=== PATIENT | female | born 1985 | race Caucasian/White ===

== ENCOUNTER 2017-08-18 08:04 | Observation (INO) | payer OTHER ==
--- NOTE | 2017-08-14 18:15 | PDGENHP ---
History and Physical - Chief Complaint Here for External cephalic version attempt - History of Present Illness 32 yo at 37w3d on 08/18/17, with breech presentation - desires external cephalic version attempt. First - 10#3oz baby delivered vaginally, coccyx fracture, episiotomy, pp hemorrhage with D&C. care with [facility], [place]. Has seen MFM - at 24 wk, had EFW = 69% ile, symmetric, prior ventriculomegaly had resolved. MFM US done at 35w2d = EFW 24%ile, with HC at 98%, BPD at 92%, AC <2%, FL 40%, normal dopplers, MVP 5, Ant Gr 2 placenta. Recommendation was recheck growth at 38 wk and induce at 39wk. Toxo neg, CMV immune. Last had water at 0730, last ate at 1900 last evening. CV labs: GBS Positive 12.9/37 plt 274 A pos Ab scre neg RPR - NR Rub Imm HepBsAg neg HIV neg Declined standard panel UA Ucx - neg neg GC neg Chl neg AFP neg NIPT neg 28 wk: 12.6/37.6 plt 80 PMH: depression/ anxiety - Zoloft and Wellbutrin in High school. PSH: removal of nevi, D&C, wisdom teeth Famhx: MGM - melanoma, MGF - colon ca, MAunt - ovarian cancer, MGF - TIAs, PGF - dementia Soc: , currently no tob/etoh/other drugs, SAHM 37.1 14 68 123/71 gen - pleasant, NAD CV - RRR chest - CTAB abd - gravid, soft, NT ext - 1+ edema US - breech, subjectively normal fluid IMP: breech presentation in a multiparous patient. Plan: written informed consent was obtained - including section, and will proceed with attempt at External Cephalic version once labs have returned. Samantha Ward MD, FACOG [facility] History Information - Allergies/Home Medication List Allergies/Adverse Reactions: ciprofloxacin Allergy (Verified 08/18/17 08:55) I have personally reviewed and updated: family history, medical history, social history, surgical history Review of Systems Review of Systems: ROS: 10pt was reviewed & negative except for what was stated in HPI & below Physical Exam Physical Exam: Lab Data & Imaging Review 08/18/17 09:00
[2017-08-18] MEDS ORDERED: TERBUTALINE SULFATE 1 MG/ML VIAL IV ONE (08:56)
[2017-08-18] MEDS ORDERED: OLIVE OIL 118 ML BTL MISC ONE (08:56)
[2017-08-18 09:10] LABS: PLATELET COUNT 258 10^3/uL (150-400)
[2017-08-18 09:39] VITALS: BP 121/66
--- NOTE | 2017-08-18 10:21 | SOAPPROG ---
SOAP Progress Note Assessment/Plan: Assessment: 32 at 37w3d with persistent breech presentation, s/p failed ECV attempt. Plan: Will schedule elective primary C/S at 39w2d on 08/31/17. Will monitor in L&D for 2 hours, may eat after 30 min reassuring tracing. Samantha Ward MD, [facility] 08/18/17 10:17 Subjective: Procedure attempted: Under frequent US guidance, Fatmata Trujillo CNM, and Willi attempted an ECV - with 2 forward roll attempts and 2 backward roll attempts. Difficulty was had disengaging the pelvis from the maternal pelvis. Every 2 min the heart rate was checked and it was always >120. Pt tolerated the procedure well. Objective: Vital Signs Temp Pulse Resp BP Pulse Ox 81 121/66 H 08/18/17 09:38 08/18/17 09:38 Laboratory Results 08/18/17 09:00 - Pending Discharge Pending Discharge Within 24 Hours: Yes Pending Discharge Within 48 Hours: Yes Pending Discharge Date: 08/19/17 Pending Discharge Time: 11:00 ICD10 Worksheet Patient Problems: Problems Problem Status Onset Breech presentation Acute - ICD10 Problem Qualifiers (1) Breech presentation Qualifiers: Fetus number: single or unspecified fetus Qualified Code(s): O32.1XX0 - Maternal care for breech presentation, not applicable or unspecified
== END 2017-08-18 12:14 | disposition home or self-care (01) ==
LOC: FOBOP 08:04 → FLD 09:00
PROVIDERS: ADMIT Obstetrics & Gynecology; ATTEND Obstetrics & Gynecology
DX: O32.1XX0 Maternal care for breech presentation, not applicable or unspecified (principal); Z3A.37 37 weeks gestation of pregnancy
CPT/HCPCS: 59025; G0378; J3105

== ENCOUNTER 2017-08-29 09:41 | Inpatient (IN) | payer OTHER ==
[2017-08-29] MEDS ORDERED: LR 500 ML IV ONE (13:57)
[2017-08-29] MEDS ORDERED: CITRIC ACID/SODIUM CITRATE 30 ML UDCUP PO ONE (13:57)
[2017-08-29] MEDS ORDERED: ceFAZolin 2 GM/DEXTROSE 100 ML IV ONE (13:57)
[2017-08-29] MEDS ORDERED: LR 1,000 ML IV SCH (14:00)
--- NOTE | 2017-08-29 14:13 | PREANESOB ---
Obstetric Pre-Anesthesia Info - General Info Proposed Procedure: : 2 Para: 1 RITA: 09/05/17 Gestational Age: 39 week(s) and 0 day(s) - Info Status: Full Term, Fuller, Malpresentation Monitors: External - Labor Status Section History: Primary Indications for Current Section: Breech Labor Epidural: No (Patient with previously attempted ECV. Baby in breech position. Patient arrived for NST this morning. Plan for primary . Patient's previous delivery was vaginal .) Anesthesia Allergies/Adverse Reactions: Allergy/AdvReac Type Severity Reaction Status Date / Time ciprofloxacin Allergy Verified 08/18/17 08:55 Visit Medications: Generic Name Dose Route Start Last Admin Trade Name Freq PRN Reason Stop Dose Admin Cefazolin Sodium/Dextrose 100 mls @ 200 mls/hr 08/29/17 13:57 Ancef 2 Gm IV 08/29/17 14:26 ONCALL ONE Protocol Lactated Ringer's 1,000 mls @ 125 mls/hr 08/29/17 14:00 Lr IV 08/30/17 13:59 CONT MALA Discontinued Medications Generic Name Dose Route Start Last Admin Trade Name Freq PRN Reason Stop Dose Admin Citric Acid/Sodium Citrate 30 ml 08/29/17 13:57 Bicitra PO 08/29/17 13:58 ONCALL ONE Lactated Ringer's 500 mls @ 0 mls/hr 08/29/17 13:57 Lr IV 08/29/17 13:58 ONCE ONE As Directed - Anesthesia History Response to Local Anesthetics: Normal Anesthesia & Operative History: No Prior Problems Family Anesthesia History: Negative - Social History Substance Use/Abuse: Denies - Vital Signs Latest Vital Signs (Nursing): Temp Pulse Resp BP Pulse Ox 36.5 C 61 20 96 08/29/17 13:22 08/29/17 13:22 08/29/17 13:22 08/29/17 13:22 Height/Weight (Nursing): Height 175.26 cm Weight 87.543 kg - Focused Exam Neck exam: FROM Mallampati Score: Class 2 Mouth exam: normal dental/mouth exam Pulmonary: no respiratory distress Cardiovascular: regular rate and rhythym (ASA 2 - ) - Plan Consent Signed and on Chart: Yes Patient/Guardian Understands and Agrees to Plan: Yes Urgent/Emergent Case: Lenore stark completed preop but documented later for safe timely pt care
[2017-08-29] MEDS ORDERED: fentaNYL 100 MCG/2 ML INJ ONE (14:17)
[2017-08-29] MEDS ORDERED: DEXAMETHASONE 4 MG/ML VIAL ONE (14:18)
[2017-08-29] MEDS ORDERED: PHENYLEPHRINE HCL 100 MCG/ML SYR ONE (14:18)
[2017-08-29] MEDS ORDERED: ONDANSETRON 4 MG/2 ML VIAL ONE (14:18)
[2017-08-29 14:28] LABS: PLATELET COUNT 253 10^3/uL (150-400)
[2017-08-29] MEDS ORDERED: MISOPROSTOL 200 MCG TAB ONE (14:59)
--- NOTE | 2017-08-29 15:07 | GHP ---
[f rep st] HISTORY AND PHYSICAL DATE OF ADMISSION: 08/29/2017 ADMITTING DIAGNOSES: 1. Intrauterine at 39 weeks. 2. Malpresentation, breech. 3. Oligohydramnios. HISTORY OF PRESENT ILLNESS: Patient is a 32-year-old, 2, para 1-0-0-1, at 39 weeks with an estimated due date of 09/07/17 by last menstrual period and confirmed by first trimester ultrasound. Patient presents today to Labor and Delivery for a nonstress test and a fluid check. Two days ago in the office, at her visit, an ultrasound was done that showed WAGNER of 4 but a maximal vertical pocket greater than 3. NST in the office was reactive, category 1. Today, on ultrasound, there is a maximum vertical pocket 1.9 and WAGNER of 5; breech presentation. Patient states good movement. Notes some mild cramping. Denies any leakage of fluid or vaginal bleeding. Patient has good care at [facility], and presented in her first trimester. Patient has a history of an LGA baby and delivered vaginally but did fracture her coccyx, had an episiotomy, and hemorrhage with a D and C. She saw MFM in this and at 24 weeks there was an estimated weight in 69th percentile, symmetric and prior ventriculomegaly had resolved. Followup ultrasound at 35 weeks revealed an estimated weight in 24th percentile, with normal Dopplers. Recommendation was to recheck growth at 38 weeks and induce at 39 weeks. Malpresentation was later noted and she had a failed version at 37 weeks and 3 days and scheduled for PCS on 08/31/17. She did receive Tdap during the . GBS culture is positive. PAST OB HISTORY: Previous full-term vaginal delivery, a viable male infant weighing 10 pounds 3 ounces. She fractured her coccyx, had an episiotomy and a hemorrhage with D and C. PAST ENTRY LEVEL ACCOUNTING CLERK HISTORY: Age of menarche 12. Cycles are regular. Denies any history of abnormal Pap smears or any exposure to sexually transmitted diseases. CURRENT MEDICATIONS: Include vitamins. ALLERGIES: Cipro-unsure reaction. PAST MEDICAL HISTORY: Remarkable for depression and anxiety, was on Zoloft and Wellbutrin in high school. PAST SURGICAL HISTORY: Removal of nevi, D and C, wisdom teeth. FAMILY HISTORY: Maternal grandmother, colon cancer. Maternal aunt, ovarian cancer. Maternal grandfather, TIAs. Paternal grandfather, dementia. SOCIAL HISTORY: Patient is . She lives with her and their son. Currently, no tobacco, alcohol, or illicit drug use. She is a axhg-we-liuz mom. REVIEW OF SYSTEMS: A 10-point review of systems is negative. Pertinent positives noted in HPI. LABS: Patient is A positive. Antibody screen negative. RPR nonreactive. Rubella immune. Hepatitis B surface antigen negative. HIV negative. UA and urine culture negative. Gonorrhea/chlamydia cultures negative. AFP negative. NIPT was negative. H and H 12.6 and 37.6, platelets were 80. GBS culture is positive. Followup H and H and platelets 12.9, 37, and 274. Toxo negative. CMV negative. PHYSICAL EXAMINATION: VITAL SIGNS: On admission, vital signs are stable. Patient is afebrile. GENERAL: Well-nourished, well-developed female. Alert and oriented x3. No apparent distress. SKIN: Warm, dry. Normal color without rash. CARDIOVASCULAR: Regular rate and rhythm without murmur. LUNGS: Clear to auscultation bilaterally. ABDOMEN: Gravid, soft, and nontender. PELVIC: Deferred. EXTREMITIES: Normal to inspection without calf tenderness. There is mild edema. ASSESSMENT AND PLAN: Patient is a 32-year-old, G2, P1-0-0-1, at 39 weeks with malpresentation breech and oligohydramnios. 1. Admit to L&D and plan on today. 2. Surgical consents were obtained. Discussed risks, benefits, alternatives of the procedure including, but not limited to, bleeding, infection, and damage to surrounding organs. 3. Patient understands all risks of the procedure and wants to proceed at this time. 4. Antibiotics on-call to OR. 5. SCDs for DVT prophylaxis. /[id number]/MODL MTDD
[2017-08-29] MEDS ORDERED: MEPERIDINE 25 MG/0.5 ML AMP IVP PRN (15:21)
[2017-08-29] MEDS ORDERED: PHENYLEPHRINE HCL 100 MCG/ML SYR IVP PRN (15:21)
[2017-08-29] MEDS ORDERED: HYDROmorphONE/DILAUDID 1 MG/ML INJ IVP PRN (15:21)
[2017-08-29] MEDS ORDERED: fentaNYL 100 MCG/2 ML INJ IVP PRN (15:21)
[2017-08-29] MEDS ORDERED: ONDANSETRON 4 MG/2 ML VIAL IVP PRN (15:21)
[2017-08-29] MEDS ORDERED: NALOXONE HCL 0.4 MG/ML INJ IVP PRN (15:21)
[2017-08-29] MEDS ORDERED: METHYLERGONOVINE MAL 0.2 MG/ML INJ ONE (15:42)
[2017-08-29] MEDS ORDERED: HYDROmorphONE/DILAUDID 2 MG/ML INJ IVP ONE (17:15)
[2017-08-29] MEDS ORDERED: DOCUSATE SODIUM 100 MG CAP PO PRN (17:21)
[2017-08-29] MEDS ORDERED: SIMETHICONE 80 MG TAB CHEW PO PRN (17:21)
[2017-08-29] MEDS ORDERED: LACTULOSE 20 GM/30 ML UDCUP PO PRN (17:21)
[2017-08-29] MEDS ORDERED: MAGNESIUM HYDROXIDE 30 ML UDCUP PO PRN (17:21)
[2017-08-29] MEDS ORDERED: BISACODYL 10 MG SUPP PR PRN (17:21)
[2017-08-29] MEDS ORDERED: POLYETHYLENE GLYCOL 3350 17 GM PKT PO PRN (17:21)
[2017-08-29] MEDS ORDERED: PROMETHAZINE HCL 25 MG/ML INJ IVP PRN (17:21)
[2017-08-29] MEDS ORDERED: HYDROmorphONE/DILAUDID 2 MG/ML INJ IVP PRN (17:22)
--- NOTE | 2017-08-29 17:26 | OBDEL ---
Info Type: Primary Presentation at Delivery: Breech (Kena breech) L&D Analgesia/Anesthesia Type: Spinal GBS+: Yes Intrapartum Medications: Discontinued Medications Generic Name Dose Route Start Last Admin Trade Name Conner PRN Reason Stop Dose Admin Cefazolin Sodium/Dextrose 100 mls @ 200 mls/hr 08/29/17 13:57 08/29/17 14:43 Ancef 2 Gm IV 08/29/17 14:26 100 mls ONCALL ONE Administration Protocol Lactated Ringer's 500 mls @ 0 mls/hr 08/29/17 13:57 08/29/17 14:44 Lr IV 08/29/17 13:58 500 mls ONCE ONE Administration As Directed - Care Provider Phototypesetter Operator/OIL PRODUCER: Marine Hilliard Indications for Delivery: Oligohydramnios (Malpresentation-breech) Operative Report - Delivery Pre-op Diagnoses: IUP @ 39 weeks with malpresentation-breech, failed ECV now with oligo Post-op Diagnoses: IUP @ 39 weeks with malpresentation-breech, failed ECV now with oligo History of Prior Section: No Number of Prior Sections: 0 Nulliparous Prior to Delivery: No Indications for Current Section: Breech (kena;), Other (Specify) ( Oligo) Procedure: Unscheduled, Low Transverse Surgeon: Elena Alejo Developmental Psychologist: Jackie Cm Anesthesiologist: Jomar Mcneill Complications: None Findings: A viable female infant born at 1522 with 8 and 9 Apgars in kena breech presentation. Meconium-stained fluid noted. Delivered without difficulty with nuchal cord x 1-loose and slipped. Nose and mouth suctioned. Delayed cord clamping x 60 sec. Cord then clamped x 2 and cut. Infant to [facility] OIL PRODUCER. Cord blood obtained. Placenta delivered intact with 3-vc. Uterine inversion noted and resolved with insertion of fist in less than 10 seconds. Some uterine atony noted and Methergine given IM as well as Cytotec 1000mcg [place]. Uterus, tubes and ovaries grossly normal appearing. Specimen(s)/Path: Other (Specify) (none) IV Fluid (ml): 2,000 EBL: 800 cc UO-50 cc clear, concentrated urine [place] Data RITA: 09/05/17 Gestational Age: 39 week(s) and 0 day(s) Fuller Delivery Date: 08/29/17 Delivery Time: 15:22 Sex of : Female Score (1 Min): 8 Score (5 Min): 9 ICD10 Worksheet Patient Problems: Problems Problem Status Onset Meconium in amniotic fluid Acute Oligohydramnios Acute Status post primary low transverse section Acute Breech presentation Acute - ICD10 Problem Qualifiers (1) Oligohydramnios (2) Status post primary low transverse section (3) Meconium in amniotic fluid
--- NOTE | 2017-08-29 17:51 | PDMN ---
Medical Necessity Medical necessity: C/M review: Patient meets INPT criteria under [facility] [place] [facility] Delivery: viable female due to Fan breech presentation. MD anticipates > 2 MN LOS for ongoing med nec for eval and TX of above.
[2017-08-29] MEDS: SENNOSIDES/DOCUSATE SODIUM TAB PO SCH (22:52)
--- NOTE | 2017-08-30 06:45 | GOP ---
[f rep st] OPERATIVE REPORT DATE OF OPERATION: 08/29/2017 SURGEON: Elena Alejo DO PRACTICE PHYSICIAN: FEI Anne. ANESTHESIA: Spinal anesthesia. ANESTHESIOLOGIST: Jomar Mcneill MD PREOPERATIVE DIAGNOSIS: Intrauterine at 39 weeks, malpresentation- breech, failed external cephalic version, now with oligohydramnios. POSTOPERATIVE DIAGNOSIS: Intrauterine at 39 weeks, malpresentation- breech, failed external cephalic version, now with oligohydramnios. PROCEDURE PERFORMED: Primary low-transverse section. FINDINGS: Viable female born at 1522 with 8 and 9 Apgars in kena breech presentation. Meconium stained fluid noted upon entry of amniotic sac. Delivered baby girl without difficulty with nuchal cord x1, it was loose slipped. Nose and mouth were bulb suctioned. Delayed cord clamping x60 seconds. Cord was then clamped x2 and cut. Infant handed to awaiting BATCH TESTER. Cord blood obtained. Placenta delivered intact with three-vessel cord. Uterine inversion was noted, resolved quickly with insertion of fist in under 10 seconds. Uterine atony was noted after closure of the uterine incision in 2 layers. Methergine given IM x1, as well as Cytotec 1000 mcg per rectum. The uterus then was firm without atony and minimal bleeding noted. Uterus, tubes, and ovaries grossly normal appearing. ESTIMATED BLOOD LOSS: 800 cc. INDICATIONS: The patient is a 32-year-old 2, para 1-0-0-1 at 39 weeks with known malpresentation- breech, that had a failed ECV at 37 weeks 3 days, recently diagnosed with low borderline oligo and today now with oligohydramnios with a maximal vertical pocket 1.9 cm. We discussed proceeding with a C- section today rather than what was scheduled in 2 days. Discussed risks of the procedure including but not limited to, bleeding, infection, damage to surrounding organs, and hysterectomy. Patient understands all risks of the procedure and wants to proceed at this time. Patient was properly consented. DESCRIPTION OF PROCEDURE: The patient was taken back to the operating room where spinal anesthesia was obtained without difficulty. The patient was then placed in the dorsal supine position with the leftward tilt. The patient was prepped and draped and a Martinez catheter was inserted. After a WHO time-out, a Pfannenstiel incision was then made 2 cm above the pubic symphysis. This incision was carried down to the fascia with the Bovie. The fascia was then incised transversely and dissected off the superior and inferior rectus muscles using sharp dissection with the Ponce scissors. Peritoneum was then visualized and entered bluntly and then extended laterally with taking care not to injure the bladder. The vesicouterine peritoneum was then identified and dissected off the lower uterine segment and the bladder flap was then created digitally. The bladder blade was then inserted. Lower uterine segment was then assessed and a low-transverse incision was made with a knife. Uterine incision was then extended bluntly anteriorly and posteriorly. Upon entry into the amniotic sac, there was meconium stained fluid noted. The fetus was presenting kena breech. The buttocks were palpated and delivery gradually through the hysterotomy. Fundal pressure was continued and both legs were then extended using the Pinard maneuver with gentle pressure, legs and body gradually delivered, and the remainder of the body, shoulders and head automatically delivered with fundal pressure. There was noted to be a loose nuchal cord that was slipped over the head. Baby's nose and mouth were bulb suctioned. Cord clamping was delayed for 60 seconds. Cord was then clamped x2 and cut and baby handed to the waiting nurse practitioner. Cord blood was then obtained. Placenta was delivered spontaneously with 3-vessel cord. At this time, there was noted to be uterine inversion. This was quickly resolved by placing a fist up inside the inverted uterus and was done in less than 10 seconds. Uterus was then cleared of all blood, clots and debris. The uterus was then exteriorized for better visualization. Uterus was closed in 2 layers with 0 Vicryl suture. First layer was a locking stitch of 0 Vicryl. Hemostasis was noted. The 2nd layer was an imbricating layer of 0 Vicryl suture and there was noted to be some oozing, so, 2 [id number] sutures were required for further hemostasis. The bladder flap edge was noted to be oozing, cautery was used and hemostasis was achieved. At this time, uterine atony was noted and the patient was given Methergine IM x1, as well as Cytotec 1000 mcg per rectum. The uterus did become firm and minimal bleeding noted. The uterus was then placed back inside the abdomen. The gutters were cleared of all clots and debris. The uterine incision was noted to be oozy, so Camilo was placed on the incision and hemostasis was achieved. The rectus muscles were then reapproximated with 3-0 Vicryl. The fascia was then closed with 0 Vicryl in a running locked fashion. Hemostasis was noted. The subcutaneous was closed with 2-0 Vicryl. Bovie was used for hemostasis here. Skin was then closed with 4-0 Vicryl suture on a Brian needle. The patient tolerated the procedure well. No complications. At the end of the procedure, all sponges, instruments, and sharps were counted and correct x2. The patient was then taken out of dorsal supine position and transferred to recovery room in stable condition. COMPLICATIONS: None. IV FLUIDS: 2000 cc of LR. URINE OUTPUT: 50 cc of clear, concentrated urine at the end of the procedure. /[id number]/MODL MTDD
[2017-08-30] MEDS: HYDROCODONE/APAP 5/325 TAB PO PRN ×3 (09:31→21:02)
--- NOTE | 2017-08-30 10:31 | POSTANESTH ---
Post Anesthetic Evaluation Cardiovascular Status: Normal, Stable, Similar to Pre-Op Cond Respiratory Status: Normal, Stable, Similar to Pre-op Cond. Level of Consciousness/Mental Status: Can Participate in Eval, Alert and Oriented Pain Control: Adequate, Prn Tx Ordered Nausea/Vomiting Control: Adequate, Prn Tx Ordered Complications Possibly Related to Anesthesia: None Noted (Patient seen on Mom/ Baby this morning. Doing well. Spinal has worn off completely, able to sit up and move her legs/walk. No signs of spinal headache.)
[2017-08-30] MEDS ORDERED: KETOROLAC 30 MG/1 ML SDV IVP PRN ×2 (12:56→13:17)
--- NOTE | 2017-08-30 14:06 | OBPP ---
Progress Note Assessment/Plan: Assessment: pod# 1 s/p PLTCS - breech/oligo breast feeding anemia Plan: routine post care start toradol and ibuprofen iron 08/30/17 14:04 Subjective/ Course: 08/30/17 14:04 patient is doing well. pain is well controlled. normal lochia. denies headache and changes in vision. was not started on toradol due to slight increased bleeding during section. bleeding is stable and patient is having pain control issues so will start now. carter still in. not passing gas yet. tolerating deit. working on breast feeding. Objective: 08/30/17 06:00 Patient ABO/Rh A POSITIVE 08/29/17 14:15 Temp Pulse Resp BP Pulse Ox 37.1 C 71 16 92/56 L 94 08/30/17 08:00 08/30/17 08:00 08/30/17 08:00 08/30/17 08:00 08/30/17 11:00 Physical Exam - Physical Exam Neck: non-tender, full range of motion, supple Respiratory: chest non-tender, lungs clear, normal breath sounds Cardiac/Chest: normal peripheral pulses, regular rate, rhythm Abdomen: normal bowel sounds, non-tender, other (fundus firm and non tender) Extremities: normal range of motion, non-tender, normal inspection, normal capillary refill Skin: normal color, warm/dry, other (incision covered) Neuro/Psych: no motor/sensory deficits, alert, normal mood/affect, oriented x 3
[2017-08-30] MEDS: SENNOSIDES/DOCUSATE SODIUM TAB PO SCH ×2 (18:09→21:02)
[2017-08-30] MEDS: IBUPROFEN 600 MG TAB PO PRN (18:44)
[2017-08-30] MEDS: IRON POLYSAC/IRON HEME 28 MG TAB PO SCH (21:02)
[2017-08-31] MEDS: IBUPROFEN 600 MG TAB PO PRN ×4 (00:25→21:32)
[2017-08-31] MEDS: IRON POLYSAC/IRON HEME 28 MG TAB PO SCH ×2 (09:11→21:32)
[2017-08-31] MEDS: SENNOSIDES/DOCUSATE SODIUM TAB PO SCH ×2 (09:11→21:31)
--- NOTE | 2017-08-31 11:46 | OBPP ---
Progress Note Assessment/Plan: Assessment/Plan: POD#2 s/p primary LTCS 2/2 breech and oligohydramnios at 39 weeks. 1) Doing well - continue routine post op cares, anticipate dc home tomorrow. 2) Anemia - continue Bifera bid Samantha Ward MD, FACOG [facility] 08/31/17 11:44 Subjective/ Course: 08/30/17 14:04 patient is doing well. pain is well controlled. normal lochia. denies headache and changes in vision. was not started on toradol due to slight increased bleeding during section. bleeding is stable and patient is having pain control issues so will start now. carter still in. not passing gas yet. tolerating deit. working on breast feeding. 08/31/17 11:47 Doing well. Pain well controlled, normal lochia. Ambulating, voiding and tolerating a regular diet without difficulties. Showered without a problem this morning. Working on . Objective: 08/30/17 06:00 Patient ABO/Rh A POSITIVE 08/29/17 14:15 Temp Pulse Resp BP Pulse Ox 36.6 C 73 18 108/69 94 08/31/17 09:00 08/31/17 09:00 08/31/17 09:00 08/31/17 09:00 08/31/17 09:00 gen - pleasant, NAD CV - RRR chest - CTAB Abd - fundus firm at u-2, + BS, incision - c/d/i without a dressing. ext - trace edema, calves NT. Uterine Position/Fundal Height: Umbilicus -2 Uterine Tone: Firm
[2017-08-31 20:25] VITALS: BP 109/71
[2017-08-31] MEDS: HYDROCODONE/APAP 5/325 TAB PO PRN (21:31)
[2017-09-01] MEDS: IRON POLYSAC/IRON HEME 28 MG TAB PO SCH (22:45)
[2017-09-01] MEDS: SENNOSIDES/DOCUSATE SODIUM TAB PO SCH (22:45)
--- NOTE | 2017-09-02 07:29 | OBPP ---
Progress Note Assessment/Plan: Assessment: 32 y/o s/p primary LTCS for breech presentation at 39 weeks ega POD #3 Anemia Plan: Continue routine pp care Plan D/C home tomorrow 09/02/17 07:26 Subjective/ Course: 08/30/17 14:04 patient is doing well. pain is well controlled. normal lochia. denies headache and changes in vision. was not started on toradol due to slight increased bleeding during section. bleeding is stable and patient is having pain control issues so will start now. carter still in. not passing gas yet. tolerating deit. working on breast feeding. 08/31/17 11:47 Doing well. Pain well controlled, normal lochia. Ambulating, voiding and tolerating a regular diet without difficulties. Showered without a problem this morning. Working on . 09/01/17 07:28 Doing well. Pain well controlled, normal lochia. Voiding, ambulating and tolerating regular diet. Breast feeding going well, but baby had high percentage of wt loss so would like to stay one more night to work with . Objective: 08/30/17 06:00 Patient ABO/Rh A POSITIVE 08/29/17 14:15 Temp Pulse Resp BP Pulse Ox 36.4 C 90 18 109/71 97 08/31/17 20:00 08/31/17 20:00 08/31/17 20:00 08/31/17 20:00 08/31/17 20:00 Uterine Position/Fundal Height: At Umbilicus Uterine Tone: Firm Physical Exam - Physical Exam EENT: PERRL/EOMI Neck: non-tender Respiratory: chest non-tender Cardiac/Chest: normal peripheral pulses Abdomen: normal bowel sounds, flatus, incision (well approximated ) Extremities: normal range of motion Skin: normal color, warm/dry Neuro/Psych: no motor/sensory deficits, alert, normal mood/affect, oriented x 3
[2017-09-02] MEDS: IRON POLYSAC/IRON HEME 28 MG TAB PO SCH ×2 (10:27→10:28)
[2017-09-02] MEDS: SENNOSIDES/DOCUSATE SODIUM TAB PO SCH ×2 (10:29→10:30)
[2017-09-02] MEDS: IBUPROFEN 600 MG TAB PO PRN (12:00)
--- NOTE | 2017-09-02 14:25 | OBPP ---
Progress Note Assessment/Plan: Assessment: pod# 4 s/p PLTCS - breech/oligo breast feeding anemia anxiety Plan: routine post care start toradol and ibuprofen iron post mood precautions 09/02/17 14:22 Subjective/ Course: 08/30/17 14:04 patient is doing well. pain is well controlled. normal lochia. denies headache and changes in vision. was not started on toradol due to slight increased bleeding during section. bleeding is stable and patient is having pain control issues so will start now. carter still in. not passing gas yet. tolerating deit. working on breast feeding. 08/31/17 11:47 Doing well. Pain well controlled, normal lochia. Ambulating, voiding and tolerating a regular diet without difficulties. Showered without a problem this morning. Working on . 09/01/17 07:28 Doing well. Pain well controlled, normal lochia. Voiding, ambulating and tolerating regular diet. Breast feeding going well, but baby had high percentage of wt loss so would like to stay one more night to work with . 09/02/17 14:22 patient is doing well overall. pain is controlled with just ibuprofen. normal lochia. working on breast feeding. lost greater than 10% but baby is gaining weight now. passing gas and had a bowel movement. ambulating. has a mild headache but no changes in vision. thinks it is related to exhaustion and crying. has had some anxiety about baby due to occasionally not maintaining temperature and dropped body weight. feels better after talking about follow up. discussed mood with patient and her . discussed mood check visit and mood precautions and when to call. Objective: 08/30/17 06:00 Patient ABO/Rh A POSITIVE 08/29/17 14:15 Temp Pulse Resp BP Pulse Ox 36.4 C 90 18 109/71 97 08/31/17 20:00 08/31/17 20:00 08/31/17 20:00 08/31/17 20:00 08/31/17 20:00 Physical Exam - Physical Exam Neck: non-tender, full range of motion, supple Respiratory: chest non-tender, lungs clear, normal breath sounds Cardiac/Chest: normal peripheral pulses, regular rate, rhythm Abdomen: normal bowel sounds, non-tender, other (fundus firm and non tender) Extremities: normal range of motion, non-tender, normal inspection, normal capillary refill Back: Normal inspection Skin: normal color, warm/dry, other (incisoin clean dry and intact) Neuro/Psych: no motor/sensory deficits, alert, normal mood/affect, oriented x 3
--- NOTE | 2017-09-02 14:30 | OBGCSDC ---
General Delivery Information - General Info : 2 Para: 1 Abortions: 1 Type: Primary L&D Analgesia/Anesthesia Type: Spinal Admission Date: 08/29/17 Labs: Patient ABO/Rh A POSITIVE 08/29/17 14:15 Hct 29.8 % (38.0-47.0) L 08/30/17 06:00 - Hospital Course Antepartum: 09/02/17 14:29 uncomplicated . hx with pp hemorrhage and frx tailbone. current - baby breech. failed ecv. delivered for oligo and breech. hx anxiety. : 08/30/17 14:04 patient is doing well. pain is well controlled. normal lochia. denies headache and changes in vision. was not started on toradol due to slight increased bleeding during section. bleeding is stable and patient is having pain control issues so will start now. carter still in. not passing gas yet. tolerating deit. working on breast feeding. 08/31/17 11:47 Doing well. Pain well controlled, normal lochia. Ambulating, voiding and tolerating a regular diet without difficulties. Showered without a problem this morning. Working on . 09/01/17 07:28 Doing well. Pain well controlled, normal lochia. Voiding, ambulating and tolerating regular diet. Breast feeding going well, but baby had high percentage of wt loss so would like to stay one more night to work with . 09/02/17 14:22 patient is doing well overall. pain is controlled with just ibuprofen. normal lochia. working on breast feeding. lost greater than 10% but baby is gaining weight now. passing gas and had a bowel movement. ambulating. has a mild headache but no changes in vision. thinks it is related to exhaustion and crying. has had some anxiety about baby due to occasionally not maintaining temperature and dropped body weight. feels better after talking about follow up. discussed mood with patient and her . discussed mood check visit and mood precautions and when to call. - Delivery Providers Surgeon: Elena Alejo Diagnostics Tech: Jackie Cm Anesthesiologist: Jomar Mcneill - Delivery Number of Prior Sections: 0 Indications for Current Section: Breech (kena;), Other (Specify) ( Oligo) Surgical Procedures: Unscheduled, Low Transverse Intra-op Complications: None EBL: 800 cc UO-50 cc clear, concentrated urine Bruner Data RITA: 09/05/17 Gestational Age: 39 week(s) and 4 day(s) Fuller Delivery Date: 08/29/17 Delivery Time: 15:22 Sex of : Female Weight (gm): 2721 kg Score (1 Min): 8 Score (5 Min): 9 Discharge Information - Discharge Information Prescriptions: Ibuprofen [Motrin (*)] 600 mg PO Q6HRS PRN #30 tab PRN Reason: Pain, Mild Condition: Good Instruction/Follow Up: Two Weeks, Four Weeks, Six Weeks
== END 2017-09-02 20:45 | disposition home or self-care (01) | DRG 765 ==
LOC: FLD 09:41 → OBSVTOIN 15:15 → FOB 19:31
PROVIDERS: ADMIT Obstetrics & Gynecology; ATTEND Obstetrics & Gynecology
PROC: 10D00Z1 Extraction of Products of Conception, Low, Open Approach (ICD-10-PCS; principal; 2017-08-29)
PROC: 3E0P7GC Introduction of Other Therapeutic Substance into Female Reproductive, Via Natural or Artificial Opening (ICD-10-PCS; principal; 2017-08-29)
DX: O32.1XX0 Maternal care for breech presentation, not applicable or unspecified (principal); O41.03X0 Oligohydramnios, third trimester, not applicable or unspecified; O77.0 Labor and delivery complicated by meconium in amniotic fluid; O69.81X0 Labor and delivery complicated by cord around neck, without compression, not applicable or unspecified; O62.2 Other uterine inertia; O99.03 Anemia complicating the puerperium; O99.344 Other mental disorders complicating childbirth; F41.9 Anxiety disorder, unspecified; Z3A.39 39 weeks gestation of pregnancy; Z37.0 Single live birth
CPT/HCPCS: J0690; J1100; J1170; J1885; J2210; J2270; J2370; J2405; J2550; J3010

== ENCOUNTER 2017-09-04 13:20 | Emergency (ER) | payer OTHER ==
--- NOTE | 2017-09-04 14:27 | CPEKG ---
Heart Rate: 82 RR Interval: 732 P-R Interval: 164 QRSD Interval: 102 QT Interval: 368 QTC Interval: 430 P [place]: 39 QRS [place]: 4 T Wave [place]: 18 EKG Severity - BORDERLINE ECG - EKG Impression: SINUS RHYTHM EKG Impression: PROBABLE LEFT ATRIAL ABNORMALITY EKG Impression: INFERIOR Q WAVES, PROBABLY NORMAL VARIATION Electronically Signed By: Clifton Dumont 04-Sep-2017 15:37:03
[2017-09-04] MEDS ORDERED: NS 500 ML IV ONE (14:53)
--- NOTE | 2017-09-04 14:56 | EDPHY ---
H & P Stated Complaint: csect thursday/has developed sob last few days/cp Time Seen by Provider: 09/04/17 14:43 HPI/ROS: CHIEF COMPLAINT: Shortness of breath HISTORY OF PRESENT ILLNESS: The patient is a 32-year-old female who had a section 6 days ago . Baby and mom recovered well but over the last day and half she has noticed increased shortness of breath with exertion and mild chest tightness. No fevers. No cough. No history of cardiac or pulmonary disease. REVIEW OF SYSTEMS: Constitutional: denies: chills, fever, recent illness, recent injury EENTM: denies: blurred vision, double vision, nose congestion Respiratory: See HPI Cardiac: denies: chest pain, irregular heart rate, lightheadedness, palpitations Gastrointestinal/Abdominal: denies: abdominal pain, diarrhea, nausea, vomiting, blood streaked stools Genitourinary: denies: dysuria, frequency, hematuria, pain Musculoskeletal: denies: joint pain, muscle pain Skin: denies: lesions, rash, jaundice, bruising Neurological: denies: headache, numbness, paresthesia, tingling, dizziness, weakness Hematologic/Lymphatic: denies: blood clots, easy bleeding, easy bruising Immunologic/allergic: denies: HIV/AIDS, transplant EXAM: GENERAL: Well-appearing, well-nourished and in no acute distress. HEAD: Atraumatic, normocephalic. EYES: Pupils equal round and reactive to light, extraocular movements intact, sclera anicteric, conjunctiva are normal. ENT: TMs normal, nares patent, oropharynx clear without exudates. Moist mucous membranes. NECK: Normal range of motion, supple without lymphadenopathy or JVD. LUNGS: Breath sounds clear to auscultation bilaterally and equal. No wheezes rales or rhonchi. HEART: Regular rate and rhythm without murmurs, rubs or gallops. ABDOMEN: Soft, nontender, normoactive bowel sounds. No guarding, no rebound. No masses appreciated. BACK: No CVA tenderness, no spinal tenderness, step-offs or deformities EXTREMITIES: Normal range of motion, no pitting or edema. No clubbing or cyanosis. NEUROLOGICAL: Cranial nerves II through XII grossly intact. Normal speech, normal gait. 5/5 strength, normal movement in all extremities, normal sensation PSYCH: Normal mood, normal affect. SKIN: Incision clean dry and intact, Warm, dry, normal turgor, no visible rashes or lesions. Source: Patient Exam Limitations: No limitations - Personal History LMP (Females 10-55): Over 28 Days Ago Current Tetanus Diphtheria and Acellular Pertussis (TDAP): Yes - Medical/Surgical History Hx Asthma: No Hx Chronic Respiratory Disease: No Hx Diabetes: No Hx Cardiac Disease: No Hx Renal Disease: No Hx Cirrhosis: No Hx Alcoholism: No Hx HIV/AIDS: No Hx Splenectomy or Spleen Trauma: No Other PMH: - Family History Significant Family History: No pertinent family hx - Social History Smoking Status: Never smoked Alcohol Use: Sober Drug Use: None Constitutional: Initial Vital Signs Temperature (C) 36.8 C 09/04/17 13:26 Heart Rate 82 09/04/17 13:26 Respiratory Rate 18 09/04/17 13:26 Blood Pressure 120/84 H 09/04/17 13:26 O2 Sat (%) 97 09/04/17 13:26 O2 Delivery Mode Room Air Allergies/Adverse Reactions: ciprofloxacin Allergy (Verified 09/04/17 13:25) Home Medications: Medication Instructions Recorded NK [No Known Home Meds] 09/04/17 Medical Decision Making - Diagnostics EKG Interpretation: An EKG obtained and was read and documented in trace view. Please see trace view for full reading and report. Sinus rhythm, significant Q in T-wave abnormalities inferiorly. Imaging Results: Imaging Impressions Extremity Venous Study 09/04/17 14:57 Impression: No deep venous thrombosis bilateral legs. Findings and recommendations discussed with Emergency Department physician, ESVIN SANTOS at 15:50 hour, 09/04/2017. Final report concurs with initial preliminary interpretation. Chest/Thorax CTA 09/04/17 15:50 Impression: 1. No visible pulmonary embolus. 2. Trace pleural effusions. 3. Additional findings as above. Findings discussed with ESVIN SANTOS 09/04/2017 at 17:21. Imaging: Discussed imaging studies w/ auto former machine operator Radiologist ED Course/Re-evaluation: 5:00 p.m. we discussed the ultrasound results and plan to move to CT scan 5:50 p.m. we discussed the CT results patient and are relieved. I spoke with Radiology who agrees the patient does not need to pump and dump. Patient states that she is eager to go home and feels very much reassured. Differential Diagnosis: Partial list of the Differential diagnosis considered include but were not limited to; a PE, pneumonia, pleural effusion and although unlikely based on the history and physical exam, I also considered acute coronary disease, sepsis. I discussed these differential diagnoses and the plan with the patient as well as the usual and expected course. The patient understands that the diagnosis is provisional and that in medicine we are not always correct and that further workup is often warranted. Usual and customary warnings were given. All of the patient's questions were answered. The patient was instructed to return to the emergency department should the symptoms at all worsen or return, otherwise to followup with the physician as we discussed. - Data Points Laboratory Results: Laboratory Results 09/04/17 14:30 09/04/17 14:30 09/04/17 09/04/17 09/04/17 14:30 14:30 14:30 WBC 9.55 10^3/uL H 10^3/uL (3.80-9.50) RBC 3.69 10^6/uL L 10^6/uL (4.18-5.33) Hgb 11.7 g/dL L g/dL (12.6-16.3) Hct 36.2 % L % (38.0-47.0) MCV 98.1 fL fL (81.5-99.8) MCH 31.7 pg pg (27.9-34.1) MCHC 32.3 g/dL L g/dL (32.4-36.7) RDW 13.8 % % (11.5-15.2) Plt Count 445 10^3/uL H 10^3/uL (150-400) MPV 9.8 fL fL (8.7-11.7) Neut % (Auto) 67.6 % % (39.3-74.2) Lymph % (Auto) 22.1 % % (15.0-45.0) Kinney % (Auto) 8.1 % % (4.5-13.0) Eos % (Auto) 1.2 % % (0.6-7.6) Baso % (Auto) 0.5 % % (0.3-1.7) Nucleat RBC Rel Count 0.0 % % (0.0-0.2) Absolute Neuts (auto) 6.46 10^3/uL 10^3/uL (1.70-6.50) Absolute Lymphs (auto) 2.11 10^3/uL 10^3/uL (1.00-3.00) Absolute Monos (auto) 0.77 10^3/uL 10^3/uL (0.30-0.80) Absolute Eos (auto) 0.11 10^3/uL 10^3/uL (0.03-0.40) Absolute Basos (auto) 0.05 10^3/uL 10^3/uL (0.02-0.10) Absolute Nucleated RBC 0.00 10^3/uL 10^3/uL (0-0.01) Immature Gran % 0.5 % % (0.0-1.1) Immature Gran # 0.05 10^3/uL 10^3/uL (0.00-0.10) PT 13.3 SEC SEC (12.0-15.0) INR 0.99 (0.83-1.16) APTT 27.7 SEC SEC (23.0-38.0) Sodium 141 mEq/L mEq/L (135-145) Potassium 4.0 mEq/L mEq/L (3.3-5.0) Chloride 103 mEq/L mEq/L (97-110) Carbon Dioxide 21 mEq/l L mEq/l (22-31) Anion Gap 17 mEq/L H mEq/L (8-16) BUN 12 mg/dL mg/dL (7-23) Creatinine 0.6 mg/dL mg/dL (0.6-1.0) Estimated GFR > 60 Glucose 93 mg/dL mg/dL (70-100) Calcium 9.6 mg/dL mg/dL (8.5-10.4) Medications Given: Discontinued Medications Sodium Chloride (Ns) 500 mls @ 0 mls/hr IV EDNOW ONE; Wide Open PRN Reason: Protocol Stop: 09/04/17 14:54 Last Admin: 09/04/17 15:30 Dose: 500 mls Departure - Departure Disposition: Home, Routine, Self-Care Clinical Impression: Pleural effusion Condition: Fair Instructions: Pleural Effusion (ED) Referrals: NONE *PRIMARY CARE P,. [Primary Care Provider] - As per Instructions
[2017-09-04 15:06] LABS: PLATELET COUNT 445 10^3/uL (150-400)
[2017-09-04 15:15] LABS: INR 0.99 (0.83-1.16); PROTIME(PATIENT) 13.3 SEC (12.0-15.0)
[2017-09-04] MEDS ORDERED: IOPAMIDOL (ISOVUE 370) 100 ML BTL IV ONE (16:15)
[2017-09-04 18:09] VITALS: BP 125/75
== END 2017-09-04 18:07 | disposition home or self-care (01) ==
DX: O99.53 Diseases of the respiratory system complicating the puerperium (principal); J90 Pleural effusion, not elsewhere classified
CPT/HCPCS: Q9967

== ENCOUNTER → 2017-09-09 | Outpatient (CLI) | payer OTHER | LOC: FLAB 13:10 | PROVIDERS: ATTEND Obstetrics & Gynecology | DX: Z39.1 Encounter for care and examination of lactating mother (principal) | CPT/HCPCS: G0463 ==